=== PATIENT | female | born 1960 | race African-American/Black ===

== ENCOUNTER 2016-11-07 11:03 | Emergency (ER) | payer OTHER ==
[~2016-11-07] VITALS: Ht 182.9 cm; Wt 125.0 kg
[~2016-11-07 11:03] MED LIST: AMLO10TA2 PO; HYDR25TA9 PO; LOSA100T6 PO; METF500T4 PO; PROP80CA3 PO
[2016-11-07 11:37] VITALS: BP 166/113
--- NOTE | 2016-11-07 12:43 | ED.ADGEN ---
Past History Past Medical History: Anxiety, Depression, Diabetes, Hypertension Past Surgical History: , Hysterectomy Alcohol Use: None Drug Use: None Adult General Chief Complaint Chief Complaint Rectal pain HPI HPI Patient is a 86 year old female who presents with 2 days of progressive rectal pain and some bleeding that she describes as severe in intensity does not radiate. No nausea vomiting or diarrhea last bowel movement was 3 days ago. No fever. No dysuria or frequency. Patient has a prior history of hemorrhoids requiring surgery 10-15 years ago. Review of Systems Review of Systems Constitutional: Denies fever or chills [] Eyes: Denies change in visual acuity, redness, or eye pain [] HENT: Denies nasal congestion or sore throat [] Respiratory: Denies cough or shortness of breath [] Cardiovascular: No additional information not addressed in HPI [] GI: Denies abdominal pain, nausea, vomiting, bloody stools or diarrhea [] : Denies dysuria or hematuria [] Musculoskeletal: Denies back pain or joint pain [] Integument: Denies rash or skin lesions [] Neurologic: Denies headache, focal weakness or sensory changes [] Endocrine: Denies polyuria or polydipsia [] All systems negative except as noted in history present illness. Allergies Allergies Allergies Coded Allergies Type Severity Reaction Last Updated Verified aspirin Allergy Unknown Nausea and Vomiting 11/11/15 Yes morphine Allergy Unknown Rash 11/11/15 No Physical Exam Physical Exam Constitutional: Well developed, well nourished, moderate acute distress, non- toxic appearance. [] HENT: Normocephalic, atraumatic, bilateral external ears normal, oropharynx moist, no oral exudates, nose normal. [] Eyes: PERRLA, EOMI, conjunctiva normal, no discharge. [] Neck: Normal range of motion, no tenderness, supple, no stridor. [] Cardiovascular:Heart rate regular rhythm, no murmur [] Lungs & Thorax: Bilateral breath sounds clear to auscultation [] Abdomen: Bowel sounds normal, soft, no tenderness, no masses, no pulsatile masses. Rectal exam: Patient is noted to have bleeding circumferential multiple hemorrhoids one is thrombosed one is inflamed and has been bleeding. [] Skin: Warm, dry, no erythema, no rash. [] Back: No tenderness, no CVA tenderness. [] Extremities: No tenderness, no cyanosis, no clubbing, ROM intact, no edema. [] Neurologic: Alert and oriented X 3, normal motor function, normal sensory function, no focal deficits noted. [] Psychologic: Affect normal, judgement normal, mood normal. [] Current Patient Data Vital Signs Vital Signs Date Time Temp Pulse Resp B/P (MAP) Pulse Ox O2 Delivery O2 Flow Rate FiO2 11/07/16 11:37 97.6 90 20 99 Room Air EKG EKG [] Radiology/Procedures Radiology/Procedures [] Course & Med Decision Making Course & Med Decision Making Pertinent Labs and Imaging studies reviewed. (See chart for details) Due to the extensive hemorrhoids patient will be transferred to [place] for surgical intervention. As case with Dr. Holley general surgery and the hospitalist agrees to accept [] Final Impression Final Impression Multiple hemorrhoids thrombosed and bleeding [] Problems: Dragon Disclaimer Dragon Disclaimer This electronic medical record was generated, in whole or in part, using a voice recognition dictation system. DANIEL MAR MD Nov 07, 2016 12:43
[2016-11-07] MEDS ORDERED: HYDROmorphone PF 1 MG/ML DISP.SYRIN IV ONE (12:45)
[2016-11-07] MEDS ORDERED: ONDANSETRON PF 4 MG/2 ML VIAL. IV ONE (13:00)
[2016-11-07] MEDS ORDERED: IV NORMAL SALINE 500ML 500 ML IV ONE (13:00)
[2016-11-07 13:34] LABS: BASO % 1 % (0-3); EOS % 0 % (0-3); HEMATOCRIT 36.3 % (36.0-47.0); HEMOGLOBIN 12.3 g/dL (12.0-15.5); LYMPH # 1.4 x10^3/uL (1.0-4.8); LYMPH % 52 % (24-48); MEAN CORPUSCULAR HEMOGLOBIN 29 pg (25-35); MEAN CORPUSCULAR HGB CONC 34 g/dL (31-37); MEAN CORPUSCULAR VOLUME 86 fL (79-100); MONO # 0.3 x10^3/uL (0.0-1.1); MONO % 12 % (0-9); NEUT % 36 % (31-73); PLATELET COUNT 231 x10^3/uL (140-400); RED CELL DISTRIBUTION WIDTH 14.2 % (11.5-14.5); WHITE BLOOD COUNT 2.7 x10^3/uL (4.0-11.0)
[2016-11-07 13:38] LABS: CALCIUM 9.9 mg/dL (8.5-10.1); GFR 69.7
[2016-11-07 13:39] LABS: POTASSIUM 2.8 mmol/L (3.5-5.1)
[2016-11-07] MEDS ORDERED: fentaNYL PF 100 MCG/2 ML VIAL IV ONE (14:15)
[2016-11-07] MEDS ORDERED: POTASSIUM CHLORIDE 20 MEQ TABLET.ER. PO ONE (14:15)
== END 2016-11-07 14:15 | disposition short-term general hospital (02) ==
LOC: ER 11:03
DX: K64.5 Perianal venous thrombosis (principal); I10 Essential (primary) hypertension; E11.9 Type 2 diabetes mellitus without complications; Z88.6 Allergy status to analgesic agent; Z88.5 Allergy status to narcotic agent
CPT/HCPCS: 36415; 80048; 85027; 96361; 96374; 96375; 99285; J2405; J3010; J7040

== ENCOUNTER → 2021-02-02 | Outpatient (CLI) | payer BC, OTHER ==
[~2021-02-02] MED LIST changes: +AMLO-187 PO; -AMLO10TA2 PO; +HYDR-2145 PO; -HYDR25TA9 PO; +LOSA100T14 PO; -LOSA100T6 PO; +METF500T16 PO; -METF500T4 PO
--- NOTE | 2021-02-06 10:11 | RAD ---
EXAM: Bilateral screening mammogram. HISTORY: 60-year-old female presents for screening mammography. TECHNIQUE: Full-field digital craniocaudal and mediolateral oblique views of both breasts are obtaine d for evaluation. Computer aided detection was applied. COMPARISON: 03/25/2017 BREAST PARENCHYMAL DENSITY: Level B - Scattered fibroglandular densities. FINDINGS: There is no new suspicious mass, microcalcification or region of architectural distortion. IMPRESSION: BI-RADS Category 2: Benign finding(s). RECOMMENDATION: Annual mammography is recommended. If your mammogram demonstrates that you have dense breast tissue, which could hide abnormalities, and if you have other risk factors for breast cancer that have been identified, you might benefit from s upplemental screening tests that may be suggested by your ordering physician. Dense breast tissue, i n and of itself, is a relatively common condition. This information is not provided to cause undue c oncern, but rather to raise your awareness and to promote discussion with your physician regarding th e presence of other risk factors, in addition to dense breast tissue. A report of your mammography re sults will be sent to you and your physician. You should contact your physician if you have any ques tions or concerns regarding this report. Mammography is a sensitive method for finding small breast cancers, but it does not detect them all a nd is not a substitute for careful clinical examination. A negative mammogram does not negate a clin ically suspicious finding and should not result in delay in biopsying a clinically suspicious abnorma lity. PQRS compliance statement - Patient information was entered into a reminder system with a target due date for the next mammogram. "Our facility is accredited by the [employer] Mammography [employer]." Electronically signed by: Maddie Quintana MD (02/06/2021 10:09 AM) [id number]
== END ==
LOC: MAMMO 10:02
PROVIDERS: ATTEND Family Medicine
DX: Z12.31 Encounter for screening mammogram for malignant neoplasm of breast (principal)
CPT/HCPCS: 77067